=== PATIENT | male | born 1990 | race Hispanic/Latino ===

== ENCOUNTER 2024-04-03 04:34 | Emergency (ER) | payer BC ==
--- NOTE | 2024-04-03 04:49 | EDPHYS ---
Physician Documentation [facility] Name: Milind Faith Jr Age: 34 yrs Sex: Male : 1990 Arrival Date: 04/03/2024 Time: 04:34 Bed 6 Private MD: ED Physician Sylvester Byrd HPI: 04/03 04:45 This 34 yrs old Male presents to ER via Unassigned with complaints of Ear sp3 Pain, Foreign Body In Ear. 04:45 34-year-old male presents to the ED with chief complaint left ear pain after foreign sp3 body sensation while he was sleeping where he found an insect in his ear canal that he pulled out. Symptoms have dissipated however he still feels pain and inflammation in the left ear canal. No other symptoms noted. Review of systems negative for fever, headache, bleeding, drainage or any other signs or symptoms on ROS at this time.. Historical: - Allergies: 04:46 No Known Allergies; cp4 - Immunization history:: Adult Immunizations up to date. - Infectious Disease History:: Denies. - Social history:: Smoking status: Patient denies any tobacco usage or history of. ROS: 04:46 Constitutional: Negative for fever, chills, and weight loss, Eyes: Negative for injury, sp3 pain, redness, and discharge, Neck: Negative for injury, pain, and swelling, Cardiovascular: Negative for chest pain, palpitations, and edema, Respiratory: Negative for shortness of breath, cough, wheezing, and pleuritic chest pain, Abdomen/GI: Negative for abdominal pain, nausea, vomiting, diarrhea, and constipation, Back: Negative for injury and pain, MS/Extremity: Negative for injury and deformity, Skin: Negative for injury, rash, and discoloration, Neuro: Negative for headache, weakness, numbness, tingling, and seizure, Psych: Negative for depression, anxiety, suicide ideation, homicidal ideation, and hallucinations, Allergy/Immunology: Negative for hives, rash, and allergies, Endocrine: Negative for neck swelling, polydipsia, polyuria, polyphagia, and marked weight changes, 04:46 All other systems are negative, Exam: 04:47 Constitutional: This is a well developed, well nourished patient who is awake, alert, sp3 and in no acute distress. Head/Face: Normocephalic, atraumatic. Eyes: Pupils equal round and reactive to light, extra-ocular motions intact. Lids and lashes normal. Conjunctiva and sclera are non-icteric and not injected. Cornea within normal limits. Periorbital areas with no swelling, redness, or edema. Neck: Trachea midline, no thyromegaly or masses palpated, and no cervical lymphadenopathy. Supple, full range of motion without nuchal rigidity, or vertebral point tenderness. No Meningismus. Chest/axilla: Normal chest wall appearance and motion. Nontender with no deformity. No lesions are appreciated. Cardiovascular: Regular rate and rhythm with a normal S1 and S2. No gallops, murmurs, or rubs. Normal PMI, no JVD. No pulse deficits. Respiratory: Lungs have equal breath sounds bilaterally, clear to auscultation and percussion. No rales, rhonchi or wheezes noted. No increased work of breathing, no retractions or nasal flaring. Abdomen/GI: Soft, non-tender, with normal bowel sounds. No distension or tympany. No guarding or rebound. No evidence of tenderness throughout. Back: No spinal tenderness. No costovertebral tenderness. Full range of motion. Skin: Warm, dry with normal turgor. Normal color with no rashes, no lesions, and no evidence of cellulitis. MS/ Extremity: Pulses equal, no cyanosis. Neurovascular intact. Full, normal range of motion. Neuro: Awake and alert, GCS 15, oriented to person, place, time, and situation. Cranial nerves II-XII grossly intact. Motor strength 5/5 in all extremities. Sensory grossly intact. Cerebellar exam normal. Normal gait. Psych: Awake, alert, with orientation to person, place and time. Behavior, mood, and affect are within normal limits. 04:47 ENT: Ear canal(s): Left external auditory canal with mild erythema and no foreign body or cerumen noted. Ear canal is clean., Vital Signs: 04:44 BP 147 / 91; Pulse 79; Resp 18; Temp 98.1; Pulse Ox 100% ; Weight 90.72 kg; Height 5 cp4 ft. 2 in. ; 04:47 BP 147 / 91; Pulse 78; Resp 18; Pulse Ox 99% on R/A; kj2 04:44 Body Mass Index 36.58 (90.72 kg, 157.48 cm) cp4 MDM: 04:40 Patient medically screened. sp3 04:47 Data reviewed: vital signs, nurses notes. ED course: 34-year-old male with a resolved sp3 insect found in the left external auditory canal now with erythema. Will treat with antibiotic drops to prevent any potential infection. No further canal also irrigated with saline. No further action needed. Follow-up with PCP as needed.. Administered Medications: No medications were administered Disposition Summary: 04/03/24 04:48 Discharge Ordered Notes: Location: Home sp3 Condition: Stable sp3 Diagnosis - Foreign body in left ear, resolved sp3 Followup: sp3 - With: Private Physician - When: Upon discharge from the Emergency Department - Reason: Continuance of care Discharge Instructions: - Discharge Summary Sheet sp3 - Ear Foreign Body sp3 Forms: - Medication Reconciliation Form sp3 - Antibiotic Education sp3 - Prescription Opioid Use sp3 - Patient Portal Instructions sp3 - Leadership Thank You Letter sp3 Prescriptions: - ofloxacin 0.3 % Otic drops - instill 5 drop OTIC route every 24 hours; 5 milliliter; Refills: 0, Product sp3 Selection Permitted Signatures: Sylvester Byrd MD MD sp3 Denise Martinez cp4
--- NOTE | 2024-04-03 04:49 | ER ---
Nurse's Notes [facility] Name: Milind Faith Jr Age: 34 yrs Sex: Male : 1990 Arrival Date: 04/03/2024 Time: 04:34 Bed 6 Private MD: Diagnosis: Foreign body in left ear, resolved Presentation: 04/03 04:44 Chief complaint: Patient states: he had a bug in this left ear and is not sure if he cp4 got it all out. Coronavirus screen: Vaccine status: Patient reports receiving the 2nd dose of the covid vaccine. Client denies travel out of the [place] in the last 14 days. At this time, the client does not indicate any symptoms associated with coronavirus-19. Ebola Screen: Patient negative for fever greater than or equal to 101.5 degrees Fahrenheit, and additional compatible Ebola Virus Disease symptoms Patient denies exposure to infectious person. Patient denies travel to an Ebola-affected area in the 21 days before illness onset. No symptoms or risks identified at this time. Initial Sepsis Screen: Does the patient meet any 2 criteria? No. Patient's initial sepsis screen is negative. Does the patient have a suspected source of infection? No. Patient's initial sepsis screen is negative. Risk Assessment: Do you want to hurt yourself or someone else? Patient reports no desire to harm self or others. Onset of symptoms was April 03, 2024. 04:44 Method Of Arrival: Ambulatory 4 04:44 Acuity: JAYSHREE 5 cp4 Triage Assessment: 04:46 General: Appears in no apparent distress. uncomfortable, Behavior is calm, cooperative, cp4 appropriate for age. Pain: Complains of pain in left ear Pain does not radiate. Pain at worst was 8 out of 10 on a pain scale. EENT: Reports bug in left ear. Neuro: Level of Consciousness is awake, alert, obeys commands, Oriented to person, place, time, situation. Cardiovascular: Patient's skin is warm and dry. Respiratory: Airway is patent Respiratory effort is even, unlabored. GI: No signs and/or symptoms were reported involving the gastrointestinal system. : No signs and/or symptoms were reported regarding the genitourinary system. Derm: No signs and/or symptoms reported regarding the dermatologic system. Musculoskeletal: No signs and/or symptoms reported regarding the musculoskeletal system. Historical: - Allergies: 04:46 No Known Allergies; cp4 - Immunization history:: Adult Immunizations up to date. - Infectious Disease History:: Denies. - Social history:: Smoking status: Patient denies any tobacco usage or history of. Screenin:49 [facility] ED Fall Risk Assessment (Adult) History of falling in the last 3 months, kj2 including since admission No falls in past 3 months (0 pts) Confusion or Disorientation No (0 pts) Intoxicated or Sedated No (0 pts) Impaired Gait No (0 pts) Mobility Assist Device Used No (0 pt) Altered Elimination No (0 pt) Score/Fall Risk Level 0 - 2 = Low Risk. Abuse screen: Denies threats or abuse. Denies injuries from another. Nutritional screening: No deficits noted. Tuberculosis screening: No symptoms or risk factors identified. Assessment: 04:49 Reassessment: No changes from previously documented assessment. General:. cp4 Vital Signs: 04:44 BP 147 / 91; Pulse 79; Resp 18; Temp 98.1; Pulse Ox 100% ; Weight 90.72 kg; Height 5 cp4 ft. 2 in. ; 04:47 BP 147 / 91; Pulse 78; Resp 18; Pulse Ox 99% on R/A; kj2 04:44 Body Mass Index 36.58 (90.72 kg, 157.48 cm) cp4 ED Course: 04:38 Patient arrived in ED. gm2 04:39 Sylvester Byrd MD is Attending Physician. sp3 04:40 Brynn Brito, HEAVEN is Primary Nurse. kj2 04:46 Triage completed. cp4 04:46 Arm band placed on right wrist. Patient placed in waiting room. cp4 04:49 Patient has correct armband on for positive identification. Bed in low position. Call kj2 light in reach. Provided Education on: CALL LIGHT. 04:49 Bed in low position. Call light in reach. Side rails up X 1. Provided Education on: cp4 foreign body. 04:49 No provider procedures requiring assistance completed. Patient did not have IV access cp4 during this emergency room visit. Administered Medications: No medications were administered Medication: 04:49 VIS not applicable for this client. cp4 Outcome: 04:48 Discharge ordered by . sp3 04:53 Discharged to home ambulatory, cp4 04:53 Condition: stable 04:53 Discharge instructions given to patient, Instructed on discharge instructions, follow up and referral plans. medication usage, Demonstrated understanding of instructions, follow-up care, medications, Prescriptions given X 1, 04:54 Patient left the ED. cp4 Signatures: Sylvester Byrd MD MD sp3 Denise Martinez cp4 Veronica Ribeiro gm2 Brynn Brito, RN RN kj2
[2024-04-03 19:32] VITALS: BP 147/91; TEMP 98.1
[2024-04-03 19:34] VITALS: O2SAT 99
== END 2024-04-03 04:54 | disposition home or self-care (01) ==
LOC: ER 04:34
DX: T16.2XXA Foreign body in left ear, initial encounter (principal)
CPT/HCPCS: 99283

== ENCOUNTER 2025-04-17 17:02 | Emergency (ER) | payer BC ==
[2025-04-17] MEDS ORDERED: MORPHINE 4 MG/ML SYR ONE (17:40)
[2025-04-17] MEDS ORDERED: ONDANSETRON 4 MG/2 ML VIAL ONE (17:40)
[2025-04-17] MEDS ORDERED: CIPROFLOXACIN 400mg IV 400 MG/200 ML BAG IV ONE (17:40)
[2025-04-17] MEDS ORDERED: NA CHLORIDE 0.9% 1,000 ML ONE (17:41)
[2025-04-17] MEDS ORDERED: METRONIDAZOLE 500mg IVPB 500 MG/100 ML BAG IV ONE (17:41)
[2025-04-17 17:51] LABS: Absolute Lymphocytes (CBC) 2.7 K/uL (0.7-4.9); Hematocrit 46.7 % (39.6-49.0); Hemoglobin 15.7 g/dL (13.6-17.9); MCH 29.8 pg (27.0-35.0); MCHC 33.5 g/dL (32.0-36.0); MCV 88.9 fL (80-100); MPV 8.3 fL (7.6-11.3); Nucleated RBC Absolute Count 0.0 (0-0); Nucleated Red Blood Cells % 0.0 % (0-0); RBC Red Blood Cell Count 5.26 M/uL (4.33-5.43); White Blood Count 11.80 thou/uL (4.3-10.9)
[2025-04-17 17:57] LABS: PT Prothrombin Time 12.2 SECONDS (10-13.0); Protime INR 1.08
[2025-04-17 18:11] LABS: ALT/SGPT 74 U/L (16-61); AST/SGOT 26 U/L (15-37); Albumin 3.8 g/dL (3.4-5.0); Albumin/Globulin Ratio 0.9 (1.1-1.8); Alkaline Phosphatase 78 U/L (45-117); Anion Gap 10.4 mEq/L (5.0-15.0); BUN Blood Urea Nitrogen 13 mg/dL (7-18); Globulin 4.1 g/dL (2.3-3.5); Glucose Level 94 mg/dL (74-106); Lipase 21 U/L (13-75); Magnesium 2.3 mg/dL (1.6-2.4); NT PRO-BNP 24 pg/mL (<125); Potassium 3.4 mEq/L (3.5-5.1); Troponin High Sensitivity 6.3 pg/mL (<58.9)
[2025-04-17 18:17] LABS: Sqamous Epithelial None Seen /HPF (None Seen); Urine Crystals Unidentified Few /HPF (None Seen); Urine Culture Reflex Order NOT NEEDED; Urine Microscopic Reflex YN ORDER UMIC; Urine WBC Clump Rare /HPF (None Seen); Urine Yeast (Budding) Trace /HPF (None Seen)
[2025-04-17 18:19] LABS: Bilirubin Indirect, Calculated 0.0 mg/dL (0.2-0.8)
--- NOTE | 2025-04-17 18:45 | RAD REPORT ---
EXAMINATION: CT Abdomen Pelvis W Contrast CLINICAL INDICATION: Male, 35 years old. ABD PAIN TECHNIQUE: CT abdomen and pelvis was performed, after the administration of IV contrast, as per [facility] protocol. Axial, sagittal and coronal reconstructions were obtained. One or more of the following dose reduction techniques were used: Automated exposure control, adjustment of the mA and k V according to patient size, and iterative reconstruction. Unless otherwise specified, incidental findings do not require dedicated imaging follow-up. COMPARISON: No prior exam. FINDINGS: LOWER CHEST: The visualized lung bases are clear. LIVER: Normal in size and contour. Diffuse parenchymal hypoattenuation suggesting steatosis. No focal lesion. BILIARY SYSTEM: No suspicious abnormalities. SPLEEN: Normal size. No focal lesion. PANCREAS: No mass, ductal dilation, or artur-pancreatic fluid. ADRENALS: Normal; no mass. KIDNEYS: Normal size and contour. No hydronephrosis. URINARY BLADDER: Unremarkable. GASTROINTESTINAL TRACT: No evidence of free air, significant intra-abdominal free fluid, bowel obstru ction or abscess. APPENDIX: Normal appendix. LYMPH NODES: No lymphadenopathy. MUSCULOSKELETAL: No acute or suspicious osseous abnormality. ADDITIONAL FINDINGS: None. IMPRESSION: No acute or concerning abnormalities seen in the abdomen or pelvis. Diffuse hepatic steatosis.
--- NOTE | 2025-04-17 18:50 | ER ---
Nurse's Notes [facility] Name: Milind Faith Jr Age: 35 yrs Sex: Male : 1990 Arrival Date: 04/17/2025 Time: 17:02 Bed 12 Private MD: Diagnosis: GI Bleed/ Gastrointestinal hemorrhage, unspecified-lower;Abdominal tenderness Presentation: 04/17 18:01 Chief complaint: Patient states: bright red rectal bleeding x1 wk, RLQ pain that kb4 started today. Coronavirus screen: At this time, unable to obtain information related to travel outside the [place] Ebola Screen: No symptoms or risks identified at this time. Initial Sepsis Screen: Does the patient meet any 2 criteria? No. Patient's initial sepsis screen is negative. Does the patient have a suspected source of infection? No. Patient's initial sepsis screen is negative. Risk Assessment: Do you want to hurt yourself or someone else? Patient reports no desire to harm self or others. Onset of symptoms was April 13, 2025. 18:01 Method Of Arrival: Ambulatory kb4 18:01 Acuity: JAYSHREE 3 kb4 Triage Assessment: 18:08 General: Appears in no apparent distress. comfortable, Behavior is calm, cooperative. kb4 Pain: Complains of pain in right lower quadrant. GI: Abdomen is round. Historical: - Allergies: 18:07 No Known Allergies; kb4 - PSHx: 18:07 HTN; kb4 - Immunization history:: Adult Immunizations up to date. - Infectious Disease History:: Denies. - Social history:: Smoking status: unknown. - Family history:: not pertinent. Screenin:08 [facility] ED Fall Risk Assessment (Adult) History of falling in the last 3 months, kb4 including since admission No falls in past 3 months (0 pts) Confusion or Disorientation No (0 pts) Intoxicated or Sedated No (0 pts) Impaired Gait No (0 pts) Mobility Assist Device Used No (0 pt) Altered Elimination No (0 pt) Score/Fall Risk Level 0 - 2 = Low Risk. Abuse screen: Denies threats or abuse. Denies injuries from another. Nutritional screening: No deficits noted. Tuberculosis screening: No symptoms or risk factors identified. Assessment: 18:08 Neuro: Level of Consciousness is awake, alert, obeys commands, Oriented to person, kb4 place, time, situation. Cardiovascular: Patient's skin is warm and dry. Respiratory: Airway is patent Respiratory effort is even, unlabored, Respiratory pattern is regular, symmetrical. GI: Abdomen is round Stools are reported to be normal. bright red streaks on stool . Last BM. 18:48 Reassessment: Patient appears in no apparent distress at this time. Patient and/or kb4 family updated on plan of care and expected duration. Pain level reassessed. Patient is alert, oriented x 3, equal unlabored respirations, skin warm/dry/pink. pain improved with morphine per physician orders. 19:03 Reassessment: received report from jocelyn cardona, all questions answered. kt5 19:10 Reassessment: discharge pending, awaiting on antibiotics to be completed. ha1 19:12 Reassessment: Patient appears in no apparent distress at this time. Patient and/or kt5 family updated on plan of care and expected duration. Pain level reassessed. Patient is alert, oriented x 3, equal unlabored respirations, skin warm/dry/pink. Patient denies pain at this time. Patient states feeling better. Patient states symptoms have improved. Vital Signs: 18:01 BP 151 / 88; Pulse 83; Resp 18; Temp 98; Pulse Ox 100% on R/A; Weight 99.79 kg; Height kb4 5 ft. 3 in. ; Pain 6/10; 19:12 BP 145 / 75; Pulse 84; Resp 16; Pulse Ox 96% ; Pain 0/10; kt5 19:55 BP 145 / 77; Pulse 81; Resp 18 S; Temp 98.2(O); Pulse Ox 99% on R/A; ha1 18:01 Body Mass Index 38.97 (99.79 kg, 160.02 cm) kb4 18:01 Pain Scale: Adult kb4 19:12 Pain Scale: Adult kt5 ED Course: 17:06 Patient arrived in ED. cj3 17:23 Carlo Diaz MD is Attending Physician. hanane 17:36 Jocelyn Mars, RN is Primary Nurse. kb4 17:46 Lipase Sent. em1 17:46 Basic Metabolic Panel Sent. em1 17:46 CBC with Diff Sent. em1 17:46 LFT's Sent. em1 17:46 Magnesium Sent. em1 17:46 NT PRO-BNP Sent. em1 17:46 PT-INR Sent. em1 17:46 Troponin HS Sent. em1 17:46 Initial lab(s) drawn, by mo, sent to lab. Inserted saline lock: 20 gauge in right em1 forearm, using aseptic technique. Blood collected. Flushed with 10 mL NS. 18:01 EKG done, by ED staff, reviewed by Carlo Diaz MD. em1 18:07 Triage completed. kb4 18:08 Arm band placed on left wrist. kb4 18:08 Patient has correct armband on for positive identification. Bed in low position. Call kb4 light in reach. Side rails up X 1. 18:19 CT Abd/Pelvis - IV Contrast Only In Process Unspecified. EDMS 18:49 Sybil Charles MD is Referral Physician. [facility] 19:19 XRAY Chest (1 view) In Process Unspecified. EDMS 19:56 No provider procedures requiring assistance completed. IV discontinued, intact, ha1 bleeding controlled, No redness/swelling at site. Pressure dressing applied. 19:56 Provided Education on: medication administration and follow ups . 1 Administered Medications: 18:11 Drug: morphine IVP or IV 4 mg IVP once over 4 mins Route: IVP; Infused Over: 4 mins; kb4 Site: right antecubital; 18:48 Follow up: Response: No adverse reaction kb4 18:11 Drug: Ondansetron IVP 8 mg IVP once; over 2 minutes Route: IVP; Site: right antecubital;kb4 18:48 Follow up: Response: No adverse reaction [facility] 18:11 Drug: NS 0.9% IV 1000 ml IV at 1000 ml once; to be given as a bolus over 60 minutes kb4 Route: IV; Rate: 1000 ml; Site: right antecubital; 19:55 Follow up: Response: No adverse reaction; IV Status: Completed infusion [facility] 18:12 Drug: metroNIDAZOLE IVPB 500 mg 100 ml IVPB at 200 ml/hr once over 30 mins Volume: 100 kb4 ml; Route: IVPB; Rate: 200 ml/hr; Infused Over: 30 mins; Site: right antecubital; 18:48 Follow up: Response: No adverse reaction; IV Status: Completed infusion [facility] 18:48 Drug: Ciprofloxacin IVPB 400 mg 200 ml IVPB once over 60 mins Volume: 200 ml; Route: kb4 IVPB; Infused Over: 60 mins; Site: right antecubital; 19:46 Follow up: Response: No adverse reaction; IV Status: Completed infusion me1 Medication: 18:08 VIS not applicable for this client. kb4 Outcome: 18:49 Discharge ordered by . hanane 19:56 Discharged to home ambulatory, [facility] 19:56 Condition: stable 19:56 Discharge instructions given to patient, Instructed on discharge instructions, follow up and referral plans. medication usage, Demonstrated understanding of instructions, follow-up care, medications, Prescriptions given X 3, 19:57 Patient left the ED. 1 Signatures: Dispatcher [employer] EDMS Carlo Diaz MD MD cha Martinez, Eric em1 Kathy Euceda RN RN 1 Ya Sanchez RN RN mo1 Jocelyn Mars RN RN kb4 Naty Jaramillo 3 Leilani Villanueva, RN RN kt5
--- NOTE | 2025-04-17 18:50 | EDPHYS ---
Physician Documentation [facility] Name: Milind Faith Jr Age: 35 yrs Sex: Male : 1990 Arrival Date: 04/17/2025 Time: 17:02 Bed 12 Private MD: ED Physician Carlo Diaz HPI: 04/17 18:05 This 35 yrs old Male presents to ER via Unassigned with complaints of Bloody hanane Stools. 18:05 The patient presents with abdominal pain in the lower abdomen, right lower quadrant, in hanane the left lower quadrant. Onset: The symptoms/episode began/occurred 7 day(s) ago. The symptoms do not radiate. Associated signs and symptoms: none. Modifying factors: The symptoms are alleviated by nothing, the symptoms are aggravated by bm's. Severity of pain: At its worst the pain was mild in the emergency department the pain is unchanged. The patient has not experienced similar symptoms in the past. Historical: - Allergies: 18:07 No Known Allergies; kb4 - PSHx: 18:07 HTN; kb4 - Immunization history:: Adult Immunizations up to date. - Infectious Disease History:: Denies. - Social history:: Smoking status: unknown. - Family history:: not pertinent. ROS: 18:05 Constitutional: Negative for fever, chills, and weight loss, Eyes: Negative for injury, hanane pain, redness, and discharge, ENT: Negative for injury, pain, and discharge, Neck: Negative for injury, pain, and swelling, Cardiovascular: Negative for chest pain, palpitations, and edema, Respiratory: Negative for shortness of breath, cough, wheezing, and pleuritic chest pain, Back: Negative for injury and pain, : Negative for injury, bleeding, discharge, and swelling, MS/Extremity: Negative for injury and deformity, Skin: Negative for injury, rash, and discoloration, Neuro: Negative for headache, weakness, numbness, tingling, and seizure, Psych: Negative for depression, anxiety, suicide ideation, homicidal ideation, and hallucinations, Allergy/Immunology: Negative for hives, rash, and allergies, Endocrine: Negative for neck swelling, polydipsia, polyuria, polyphagia, and marked weight changes, Hematologic/Lymphatic: Negative for swollen nodes, abnormal bleeding, and unusual bruising, 18:05 Abdomen/GI: Positive for rectal bleeding, Exam: 18:05 Constitutional: This is a well developed, well nourished patient who is awake, alert, hanane and in no acute distress. Head/Face: Normocephalic, atraumatic. Eyes: Pupils equal round and reactive to light, extra-ocular motions intact. Lids and lashes normal. Conjunctiva and sclera are non-icteric and not injected. Cornea within normal limits. Periorbital areas with no swelling, redness, or edema. ENT: Nares patent. No nasal discharge, no septal abnormalities noted. Tympanic membranes are normal and external auditory canals are clear. Oropharynx with no redness, swelling, or masses, exudates, or evidence of obstruction, uvula midline. Mucous membranes moist. Neck: Trachea midline, no thyromegaly or masses palpated, and no cervical lymphadenopathy. Supple, full range of motion without nuchal rigidity, or vertebral point tenderness. No Meningismus. Chest/axilla: Normal chest wall appearance and motion. Nontender with no deformity. No lesions are appreciated. Cardiovascular: Regular rate and rhythm with a normal S1 and S2. No gallops, murmurs, or rubs. Normal PMI, no JVD. No pulse deficits. Respiratory: Lungs have equal breath sounds bilaterally, clear to auscultation and percussion. No rales, rhonchi or wheezes noted. No increased work of breathing, no retractions or nasal flaring. Back: No spinal tenderness. No costovertebral tenderness. Full range of motion. Male : Normal genitalia with no discharge or lesions. Skin: Warm, dry with normal turgor. Normal color with no rashes, no lesions, and no evidence of cellulitis. MS/ Extremity: Pulses equal, no cyanosis. Neurovascular intact. Full, normal range of motion., bilateral aka Neuro: Awake and alert, GCS 15, oriented to person, place, time, and situation. Cranial nerves II-XII grossly intact. Motor strength 5/5 in all extremities. Sensory grossly intact. Cerebellar exam normal. Normal gait. Psych: Awake, alert, with orientation to person, place and time. Behavior, mood, and affect are within normal limits. 18:05 ECG was reviewed by the Attending Physician. 18:05 Abdomen/GI: Inspection: abdomen appears normal, Bowel sounds: normal, Palpation: mild abdominal tenderness, in the right lower quadrant and left lower quadrant, Liver: no appreciated palpable abnormalities, Hernia: not appreciated, Vital Signs: 18:01 BP 151 / 88; Pulse 83; Resp 18; Temp 98; Pulse Ox 100% on R/A; Weight 99.79 kg; Height kb4 5 ft. 3 in. ; Pain 6/10; 19:12 BP 145 / 75; Pulse 84; Resp 16; Pulse Ox 96% ; Pain 0/10; kt5 19:55 BP 145 / 77; Pulse 81; Resp 18 S; Temp 98.2(O); Pulse Ox 99% on R/A; ha1 18:01 Body Mass Index 38.97 (99.79 kg, 160.02 cm) kb4 18:01 Pain Scale: Adult kb4 19:12 Pain Scale: Adult kt5 MDM: 17:23 Medical Screening Exam initiated hanane 18:16 Differential diagnosis: diverticulitis, GI Bleed, Mesenteric ischemia or infarction, hanane non-specific abd pain, pancreatitis, Peptic Ulcer Disease, Ureterolithiasis, urinary tract infection. Data reviewed: vital signs, nurses notes, lab test result(s), radiologic studies, CT scan. Consideration of Admission/Observation Escalation of care including admission/observation considered. I considered the following discharge prescriptions or medication management in the emergency department Medications were administered in the Emergency Department. See MAR. Independent interpretation of the following test(s) in the Emergency Department CT Scan: My interpretation is ct ab/pel. Test considered but Not performed: Ultrasound no abd usg. Historians other than the Patient: pt well informed. Care significantly affected by the following chronic conditions: Obesity. 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 04/17 17: Order name: Basic Metabolic Panel; Complete Time: 18:25 [facility] 04/17 17: Order name: CBC with Diff; Complete Time: 17:55 [facility] 04/17 17: Order name: LFT's; Complete Time: 18:25 [facility] 04/17 17: Order name: Magnesium; Complete Time: 18:25 [facility] 04/17 17:26 Order name: NT PRO-BNP; Complete Time: 18:25 [facility] 04/17 17:26 Order name: PT-INR; Complete Time: 18:25 [facility] 04/17 17:26 Order name: Troponin HS; Complete Time: 18:25 [facility] 04/17 17:26 Order name: Lipase; Complete Time: 18:25 [facility] 04/17 17:26 Order name: UA Rfx Gerber Cult if indicated; Complete Time: 18:25 [facility] 04/17 17:26 Order name: XRAY Chest (1 view) 04/17 17:26 Order name: CT Abd/Pelvis - IV Contrast Only; Complete Time: 18:49 [facility] 04/17 17: Order name: Cardiac monitoring; Complete Time: 18:12 [facility] 04/17 17: Order name: EKG - Nurse/Tech; Complete Time: 18:02 [facility] 04/17 17:26 Order name: IV Saline Lock; Complete Time: 17:46 [facility] 04/17 17: Order name: Labs collected and sent; Complete Time: 17:46 [facility] 04/17 17: Order name: O2 Per Protocol; Complete Time: 18:12 [facility] 04/17 17:26 Order name: O2 Sat Monitoring; Complete Time: 18:12 [facility] EC:05 Rate is 83 beats/min. Rhythm is regular. QRS [place] is Normal. DE interval is normal. QRS hanane interval is normal. QT interval is normal. No Q waves. T waves are Normal. No ST changes noted. Clinical impression: Normal ECG and No evidence of ischemia. Interpreted by me. Reviewed by me. Administered Medications: 18:11 Drug: morphine IVP or IV 4 mg IVP once over 4 mins Route: IVP; Infused Over: 4 mins; kb4 Site: right antecubital; 18:48 Follow up: Response: No adverse reaction kb4 18:11 Drug: Ondansetron IVP 8 mg IVP once; over 2 minutes Route: IVP; Site: right antecubital;kb4 18:48 Follow up: Response: No adverse reaction kb4 18:11 Drug: NS 0.9% IV 1000 ml IV at 1000 ml once; to be given as a bolus over 60 minutes kb4 Route: IV; Rate: 1000 ml; Site: right antecubital; 19:55 Follow up: Response: No adverse reaction; IV Status: Completed infusion ha1 18:12 Drug: metroNIDAZOLE IVPB 500 mg 100 ml IVPB at 200 ml/hr once over 30 mins Volume: 100 kb4 ml; Route: IVPB; Rate: 200 ml/hr; Infused Over: 30 mins; Site: right antecubital; 18:48 Follow up: Response: No adverse reaction; IV Status: Completed infusion kb4 18:48 Drug: Ciprofloxacin IVPB 400 mg 200 ml IVPB once over 60 mins Volume: 200 ml; Route: kb4 IVPB; Infused Over: 60 mins; Site: right antecubital; 19:46 Follow up: Response: No adverse reaction; IV Status: Completed infusion me1 Disposition Summary: 04/17/25 18:49 Discharge Ordered Notes: Location: Home hanane Problem: new hanane Symptoms: have improved hanane Condition: Stable hanane Diagnosis - GI Bleed/ Gastrointestinal hemorrhage, unspecified - lower hanane - Abdominal tenderness hanane Followup: hanane - With: Private Physician - When: 2 - 3 days - Reason: Recheck today's complaints, Continuance of care, Re-evaluation by your physician Followup: hanane - With: Sybil Charles MD - When: 2 - 3 days - Reason: Recheck today's complaints, Re-evaluation by your physician Discharge Instructions: - Discharge Summary Sheet hanane - Abdominal Pain, Adult hanane - Gastrointestinal Bleeding hanane - Rectal Bleeding hanane - How to Take a Sitz Bath hanane - Abdominal Pain, Adult, Emyl-le-Clcz hanane - Gastrointestinal Bleeding, Iypy-oc-Dwwk hanane - Rectal Bleeding, [id number]-[id number] hanane - Lower Gastrointestinal Bleeding [facility] Forms: - Medication Reconciliation Form [facility] - Antibiotic Education hanane - Prescription Opioid Use [facility] - Patient Portal Instructions [facility] - Leadership Thank You Letter [facility] Prescriptions: - Flagyl 500 mg Oral tablet - take 1 tablet ORAL route every 8 hours for 7 days; 21 tablet; Refills: 0, [facility] Product Selection Permitted - Cipro 500 mg Oral Tablet - take 1 tablet ORAL route every 12 hours for 7 days; 14 tablet; Refills: 0, [facility] Product Selection Permitted - dicyclomine 20 mg Oral tablet - take 1 tablet ORAL route 4 times per day; 28 tablet; Refills: 0, Product [facility] Selection Permitted Signatures: Dispatcher [employer] Carlo Pastor MD MD cha Bowen, Kayla, RN RN kb4 Kathy Euceda RN ha1 Ya Sanchez RN me1 Corrections: (The following items were deleted from the chart) 17: 17:26 BASIC METABOLIC PANEL+C.LAB.BRZ ordered. EDMS EDMS 17: 17:26 CBC+H.LAB.BRZ ordered. EDMS EDMS 17: 17:26 HEPATIC FUNCTION+C.LAB.BRZ ordered. EDMS EDMS 17: 17:26 MAGNESIUM+C.LAB.BRZ ordered. EDMS EDMS 17 17:26 PROBNP+C.LAB.BRZ ordered. EDMS EDMS 17: 17:26 PROTIME (+INR)+COAG.LAB.BRZ ordered. EDMS EDMS 17: 17:26 Troponin High Sensitivity+C.LAB.BRZ ordered. EDMS EDMS : 17:26 LIPASE+C.LAB.BRZ ordered. EDMS EDMS : 17:26 UA Rfx Gerber Cult if indicated+U.LAB.BRZ ordered. EDMS EDMS : 17:27 Chest Single View+RAD.RAD.BRZ ordered. EDMS EDMS 17: 17:27 Abdomen Pelvis W Con+CT.RAD.BRZ ordered. EDMS EDMS
--- NOTE | 2025-04-17 19:32 | RAD REPORT ---
EXAMINATION: ONE VIEW CHEST XR CLINICAL INDICATION: Male, 35 years old.,ABDOMINAL DISTENTION TECHNIQUE: Frontal chest projection is submitted. Examination is limited by patient positioning and t echnique. COMPARISON: No prior exam. FINDINGS: The lungs are well inflated and clear. No pneumothorax or sizable effusion. The heart is normal in s ize. Mediastinal contours are unremarkable. IMPRESSION: No acute intrathoracic abnormalities.
[2025-04-18 01:33] VITALS: BP 145/77; TEMP 98.2; O2SAT 99
== END 2025-04-17 19:57 | disposition home or self-care (01) ==
LOC: ER 17:02
DX: K92.2 Gastrointestinal hemorrhage, unspecified (principal); R10.814 Left lower quadrant abdominal tenderness; R10.813 Right lower quadrant abdominal tenderness
CPT/HCPCS: 96365; 96367; 93005; 85025; 81001; 80048; 36415; 83735; 85610; 80076; 84484; 83690; 83880; 74177; 71045; 96375; 99284; Q9967; J2405; J0744; J7030